=== PATIENT | female | born 1995 | race Two or more races ===

== ENCOUNTER 2017-10-20 11:44 | Emergency (ER) | payer OTHER ==
[2017-10-20 11:54] VITALS: BP 140/69; PULSE 98; TEMP 98.2; BMI 31.8
--- NOTE | 2017-10-20 12:30 | PDOC ---
History of Present Illness - General Chief Complaint: Respiratory Stated Complaint: NASAL PAIN Time Seen by Provider: 10/20/17 11:54 History Source: Patient Exam Limitations: No Limitations - History of Present Illness Initial Comments: 10/20/17 12:23 22 yr female with c/o cough sore throat nasal congestion for 2 days no fever. Pt states 10 weeks . no abd pain or urinary complaints. 10/20/17 12:24 Severity: reports: mild Past History - Past Medical History Allergies/Adverse Reactions: Allergies Allergy/AdvReac Type Severity Reaction Status Date / Time No Known Allergies Allergy Verified 10/20/17 11:51 Home Medications: Ambulatory Orders Penicillin V Potassium [Pen Vee K -] 250 mg PO QID #28 tablet 10/20/17 COPD: No - Suicide/Smoking/Psychosocial Hx Smoking History: Never smoked *Physical Exam - Vital Signs Last Vital Signs Temp Pulse Resp BP Pulse Ox 98.2 F 98 H 18 140/69 100 10/20/17 11:47 10/20/17 11:47 10/20/17 11:47 10/20/17 11:47 10/20/17 11:47 - Physical Exam General Appearance: Yes: Nourished, Appropriately Dressed HEENT: positive: EOMI, FANNY, Pharyngeal Erythema, Tonsillar Erythema Neck: positive: Supple. negative: Tender Respiratory/Chest: positive: Lungs Clear, Normal Breath Sounds. negative: Chest Tender Cardiovascular: positive: Regular Rhythm, Regular Rate Integumentary: positive: Normal Color, Dry, Warm Neurologic: positive: Fully Oriented, Alert, Normal Mood/Affect, Normal Response , Motor Strength 5/5 Medical Decision Making - Medical Decision Making 10/20/17 12:30 cc: cough sore throat nasal congestion neg fever neg abd pain 10 weeks taking vitamins *DC/Admit/Observation/Transfer Diagnosis at time of Disposition: Nasal congestion, Strep pharyngitis - Discharge Dispostion Disposition: HOME Condition at time of disposition: Good - Prescriptions Prescriptions: Penicillin V Potassium [Pen Vee K -] 250 mg PO QID #28 tablet - Referrals - Patient Instructions Printed Discharge Instructions: DI for Viral Upper Respiratory Infection -- Adult Additional Instructions: drink pleanty of fluids take the penicillin as directed use saline nasal irrigation spray sold over the counter to help clean sinuses and help with congestion take tylenol 650mg every 4-6hrs as needed for any fever or body aches drink decaf tea with honey and lemon steam from the shower can help clear sinuses as well follow with your doctor for any worsening symptoms return to ER if any fever greater than 101 short of breath sever pain or any other concerns beber lizbet cantidad de fluidos use un aerosol de irrigacin nasal con solucin salina que se vende sin receta mdica para ayudar a limpiar los senos nasales y ayudar con la congestin tome tylenol 650mg cada 4-6 horas segn sea necesario para cualquier fiebre o dolor de cuerpo ida t descafeinado con miel y limn el vapor de la ducha puede ayudar a limpiar los senos paranasales tambin siga con saxena mdico para cualquier sntoma que empeore regresar a la lauren de emergencias si la fiebre superior a 101 falta de aliento corta dolor o cualquier otra preocupacin - Post Discharge Activity
== END 2017-10-20 12:56 | disposition home or self-care (01) ==
LOC: JERFT 11:44
DX: O26.891 Other specified pregnancy related conditions, first trimester (principal); O98.811 Other maternal infectious and parasitic diseases complicating pregnancy, first trimester; J02.0 Streptococcal pharyngitis; B95.0 Streptococcus, group A, as the cause of diseases classified elsewhere; Z3A.10 10 weeks gestation of pregnancy
CPT/HCPCS: 87070; 87077; 87430; 99281-25

== ENCOUNTER 2018-05-13 04:00 | Inpatient (IN) | payer OTHER ==
[2018-05-13] MEDS ORDERED: DEXTROSE 5%-LACTATED RINGERS 1,000 ML IV SCH ×3 (04:30→07:30)
[2018-05-13] MEDS ORDERED: AMPICILLIN - 2 GM in SODIUM CHLORIDE 100 ML IVPB ONE (05:25)
[2018-05-13] MEDS ORDERED: BUTORPHANOL TARTRATE 1 MG/ML VIAL IVPB ONE (05:25)
[2018-05-13] MEDS ORDERED: PROMETHAZINE HCL 25 MG/1 ML VIAL IVPB ONE (05:25)
[2018-05-13] MEDS ORDERED: AMPICILLIN SODIUM 2 GM VIAL ONE (05:26)
[2018-05-13] MEDS ORDERED: PROMETHAZINE HCL 25 MG/1 ML VIAL ONE (05:49)
[2018-05-13] MEDS ORDERED: BUTORPHANOL TARTRATE 1 MG/ML VIAL ONE ×2 (05:49)
[2018-05-13 06:03] LABS: BASO % 0.1 % (0-2.0); EOS % 0.3 % (0-4.5); HEMATOCRIT 36.3 % (32.4-45.2); HEMOGLOBIN 12.4 GM/dL (10.7-15.3); LYMPH % 10.1 % (8-40); MCH 28.4 pg (25.7-33.7); MCHC 34.2 g/dl (32.0-36.0); MEAN PLT VOLUME 8.9 fl (7.5-11.1); MONO % 6.9 % (3.8-10.2); NEUT % 82.6 % (42.8-82.8); PLATELET COUNT 194 K/MM3 (134-434); RBC 4.37 M/mm3 (3.60-5.2); RDW 14.5 % (11.6-15.6); WHITE BLOOD COUNT 10.9 K/mm3 (4.0-10.0)
[2018-05-13 06:14] VITALS: BMI 38.6
[2018-05-13 06:16] LABS: INR 0.96 (0.83-1.09); PROTHROMBIN TIME (PATIENT) 11.3 SEC (9.7-13.0)
[2018-05-13 06:18] LABS: ACTIVATED PTT 25.9 SECONDS (25.2-36.5)
[2018-05-13 06:41] LABS: ANION GAP 8 MMOL/L (8-16); BLOOD UREA NITROGEN 8 mg/dL (7-18); CALCIUM 8.1 mg/dL (8.5-10.1); CHLORIDE 104 mmol/L (98-107); CO2 21 mmol/L (21-32); CREATININE 0.6 mg/dL (0.55-1.3); GLUCOSE,RANDOM 187 mg/dL (74-106); POTASSIUM 4.1 mmol/L (3.5-5.1); SODIUM 134 mmol/L (136-145)
--- NOTE | 2018-05-13 07:32 | HP ---
Past Medical History - Admission Chief Complaint: Labor pain History of Present Illness: 22 yo , @ 39 weeks gestation, EDC 05/14/18, admitted for labor pain. Upon admission she was 6cm dilated. History Source: Patient Limitations to Obtaining History: No Limitations - Past Medical History ...: 2 ...Para: 0 ...Term: 0 ...: 0 ...Spon : 1 ...Induced : 0 ...Multiple Gestation: 0 ...LMP: 08/07/17 ... Weeks Gestation by Dates: 39.6 ...EDC by Dates: 05/14/18 - Past Surgical History Past Surgical History: Yes: None Hx Myomectomy: No Hx Transabdominal Cerclage: No - Smoking History Smoking history: Never smoked Have you smoked in the past 12 months: No - Alcohol/Substance Use Hx Alcohol Use: No - Social History Usual Living Arrangement: Yes: With Significant Other Home Medications - Allergies Allergies/Adverse Reactions: Allergies Allergy/AdvReac Type Severity Reaction Status Date / Time No Known Allergies Allergy Verified 05/13/18 04:19 - Home Medications Home Medications: Ambulatory Orders NK [No Known Home Medication] 05/13/18 Family Disease History - Family Disease History Family History: Unremarkable Review of Systems - Review of Systems Constitutional: reports: No Symptoms Eyes: reports: No Symptoms HENT: reports: No Symptoms Neck: reports: No Symptoms Cardiovascular: reports: No Symptoms Respiratory: reports: No Symptoms Gastrointestinal: reports: No Symptoms Genitourinary: reports: Pain Breasts: reports: No Symptoms Reported Musculoskeletal: reports: No Symptoms Integumentary: reports: No Symptoms Neurological: reports: No Symptoms Endocrine: reports: No Symptoms Hematology/Lymphatic: reports: No Symptoms Psychiatric: reports: No Symptoms Pain Intensity: 8 Physical Exam - Maternity Vital Signs: Vital Signs Temperature 97.6 F 05/13/18 04:19 Pulse Rate 96 H 05/13/18 07:00 Respiratory Rate 20 05/13/18 07:00 Blood Pressure 134/79 05/13/18 07:00 O2 Sat by Pulse Oximetry (%) Constitutional: Yes: Well Nourished Eyes: Yes: Conjunctiva Clear HENT: Yes: Atraumatic Neck: Yes: Supple Cardiovascular: Yes: Regular Rate and Rhythm Lungs: Clear to auscultation - Abdominal Exam/OB Number of Fetuses: Single Presentation: Vertex - Vaginal Exam/OB Vaginal Bleediing: Light Dilatation (cm): 6 Effacement (%): 90 Amniotic Membrane Status: Intact Station: -2 - Physical Exam ...Motor Strength: WNL Psychiatric: Yes: Alert, Oriented - Labs Lab Results: CBC, BMP 05/13/18 05:40 05/13/18 05:40 Problem List - Problems (1) 39 weeks gestation of Code(s): Z3A.39 - 39 WEEKS GESTATION OF (2) Pain during labor Code(s): O99.89 - OTH DISEASES AND CONDITIONS COMPL PREG/CHLDBRTH; R52 - PAIN, UNSPECIFIED Assessment/Plan Active labor Analgesia as needed Anticipate
[2018-05-13] MEDS ORDERED: OXYTOCIN 20 UNITS in 0.9% NS 20 UNIT/1,000 ML INFUS.BAG IV ONE ×2 (08:20→09:27)
[2018-05-13] MEDS ORDERED: LIDOCAINE HCL 1% PRESERVATIVE FREE - 30ML VIAL ONE (08:20)
[2018-05-13] MEDS ORDERED: AMPICILLIN SODIUM 1 GM VIAL ONE (08:57)
[2018-05-13] MEDS: AMPICILLIN - 1 GM in SODIUM CHLORIDE 100 ML IVPB SCH ×3 (08:58→17:19)
[2018-05-13] MEDS ORDERED: TUBERCULIN PPD 5 TU/0.1ML SYRINGE (IN PATIENT USE ONLY) ID ONE (09:00)
--- NOTE | 2018-05-13 09:13 | PN ---
Progress Note (short form) - Note Progress Note: cx 9 cm, 100 vx 0 mi, arom, clear , fhr cat 1
[2018-05-13] MEDS ORDERED: WITCH HAZEL 50% (TUCKS) 40 PAD/JAR PAD TP PRN (10:23)
[2018-05-13] MEDS ORDERED: BENZOCAINE 20% 57 GM BOTTLE TP PRN (10:23)
[2018-05-13] MEDS ORDERED: BISACODYL 10 MG SUPP.RECT RC PRN (10:23)
[2018-05-13] MEDS ORDERED: BENZOCAINE 28 GM HEMORRHOIDAL OINTMENT TP PRN (10:23)
[2018-05-13] MEDS ORDERED: METHYLERGONOVINE MALEATE 0.2 MG/1 ML AMP IM PRN (10:23)
[2018-05-13] MEDS ORDERED: D5W-LR W/ 20 UNITS OXYTOCIN 20 UNIT/1,000 ML INFUS.BAG IV SCH (10:30)
[2018-05-13] MEDS ORDERED: OXYTOCIN 20 UNITS in 0.9% NS 20 UNIT/1,000 ML INFUS.BAG IV SCH (10:30)
[2018-05-13] MEDS: ACETAMINOPHEN 325 MG TABLET (FP) PO PRN ×2 (13:14→19:22)
[2018-05-13] MEDS: IBUPROFEN 600 MG TABLET (FP) PO PRN ×2 (13:14→19:22)
[2018-05-13] MEDS: FERROUS SO4 325 MG TABLET (FP) PO SCH (22:11)
[2018-05-14 07:40] LABS: BASO % 0.2 % (0-2.0); EOS % 0.4 % (0-4.5); HEMATOCRIT 32.9 % (32.4-45.2); LYMPH % 15.2 % (8-40); MCH 27.8 pg (25.7-33.7); MCHC 33.4 g/dl (32.0-36.0); MEAN CELL VOLUME 83.4 fl (80-96); MEAN PLT VOLUME 8.8 fl (7.5-11.1); MONO % 8.4 % (3.8-10.2); NEUT % 75.8 % (42.8-82.8); PLATELET COUNT 206 K/MM3 (134-434); RBC 3.95 M/mm3 (3.60-5.2); RDW 15.1 % (11.6-15.6); WHITE BLOOD COUNT 13.5 K/mm3 (4.0-10.0)
[2018-05-14] MEDS: IBUPROFEN 600 MG TABLET (FP) PO PRN ×3 (07:45→22:07)
[2018-05-14] MEDS: ACETAMINOPHEN 325 MG TABLET (FP) PO PRN (07:46)
[2018-05-14] MEDS: FERROUS SO4 325 MG TABLET (FP) PO SCH ×2 (09:54→22:07)
[2018-05-14] MEDS: PRENATAL VITAMINS W/ FOLIC ACID TABLET (FP) PO SCH (09:54)
--- NOTE | 2018-05-14 10:12 | PN ---
Post Progress Note - Subjective Subjective: no complains Post Day: 1 Type of Delivery: Vital Signs: Vital Signs Temperature 97.8 F 05/14/18 06:00 Pulse Rate 91 H 05/14/18 06:00 Respiratory Rate 18 05/14/18 06:00 Blood Pressure 112/53 L 05/14/18 06:00 O2 Sat by Pulse Oximetry (%) Breast Exam: Yes: Soft. No: Engorged Uterus: Yes: Fundus Firm, Fundus below umbilicus, Non-tender Lochia: Yes: Rubra Lochia, amount: Moderate Extremities: Yes: Calves non-tender Perineum: Yes: Episiotomy (suture healing ) Activity: Ambulating - Labs Labs: CBC WBC 13.5 K/mm3 (4.0-10.0) H 05/14/18 06:10 RBC 3.95 M/mm3 (3.60-5.2) 05/14/18 06:10 Hgb 11.0 GM/dL (10.7-15.3) 05/14/18 06:10 Hct 32.9 % (32.4-45.2) 05/14/18 06:10 MCV 83.4 fl (80-96) 05/14/18 06:10 MCH 27.8 pg (25.7-33.7) 05/14/18 06:10 MCHC 33.4 g/dl (32.0-36.0) 05/14/18 06:10 RDW 15.1 % (11.6-15.6) 05/14/18 06:10 Plt Count 206 K/MM3 (134-434) 05/14/18 06:10 MPV 8.8 fl (7.5-11.1) 05/14/18 06:10 Absolute Neuts (auto) 10.2 K/mm3 (1.5-8.0) H 05/14/18 06:10 Neutrophils % 75.8 % (42.8-82.8) 05/14/18 06:10 Lymphocytes % 15.2 % (8-40) D 05/14/18 06:10 Monocytes % 8.4 % (3.8-10.2) 05/14/18 06:10 Eosinophils % 0.4 % (0-4.5) 05/14/18 06:10 Basophils % 0.2 % (0-2.0) 05/14/18 06:10 Nucleated RBC % 0 % (0-0) 05/14/18 06:10 Problem List - Problems (1) Vaginal delivery Code(s): O80 - ENCOUNTER FOR FULL-TERM UNCOMPLICATED DELIVERY (2) Encounter for assessment Code(s): Z39.2 - ENCOUNTER FOR ROUTINE FOLLOW-UP Assessment/Plan stable plan discharge tomorrow.
[2018-05-14] MEDS ORDERED: DIPHTH,PERTUSS(ACELL),TET 0.5 ML DISP.SYRIN IM ONE (14:00)
[2018-05-14] MEDS ORDERED: SENNOSIDES/DOCUSATE COMBO (SENNA PLUS) TABLET (UD) PO PRN (22:00)
[2018-05-15] MEDS: IBUPROFEN 600 MG TABLET (FP) PO PRN (07:07)
[2018-05-15] MEDS: ACETAMINOPHEN 325 MG TABLET (FP) PO PRN (07:09)
--- NOTE | 2018-05-15 07:40 | PN ---
Post Progress Note Type of Delivery: Vital Signs: Vital Signs Temperature 98.2 F 05/14/18 21:27 Pulse Rate 78 05/14/18 21:27 Respiratory Rate 20 05/14/18 21:27 Blood Pressure 106/69 05/14/18 21:27 O2 Sat by Pulse Oximetry (%) Breast Exam: Yes: Soft Uterus: Yes: Fundus Firm Abdomen/GI: Yes: Abdomen soft, Other Lochia, amount: Small Extremities: Yes: Calves non-tender Activity: Ambulating - Labs Labs: CBC WBC 13.5 K/mm3 (4.0-10.0) H 05/14/18 06:10 RBC 3.95 M/mm3 (3.60-5.2) 05/14/18 06:10 Hgb 11.0 GM/dL (10.7-15.3) 05/14/18 06:10 Hct 32.9 % (32.4-45.2) 05/14/18 06:10 MCV 83.4 fl (80-96) 05/14/18 06:10 MCH 27.8 pg (25.7-33.7) 05/14/18 06:10 MCHC 33.4 g/dl (32.0-36.0) 05/14/18 06:10 RDW 15.1 % (11.6-15.6) 05/14/18 06:10 Plt Count 206 K/MM3 (134-434) 05/14/18 06:10 MPV 8.8 fl (7.5-11.1) 05/14/18 06:10 Absolute Neuts (auto) 10.2 K/mm3 (1.5-8.0) H 05/14/18 06:10 Neutrophils % 75.8 % (42.8-82.8) 05/14/18 06:10 Lymphocytes % 15.2 % (8-40) D 05/14/18 06:10 Monocytes % 8.4 % (3.8-10.2) 05/14/18 06:10 Eosinophils % 0.4 % (0-4.5) 05/14/18 06:10 Basophils % 0.2 % (0-2.0) 05/14/18 06:10 Nucleated RBC % 0 % (0-0) 05/14/18 06:10 Assessment/Plan 22yo s/p , PPD#2 Routine PP care Labs reviewed D/C to home Candelaria Duggan MD
[2018-05-15] MEDS: PRENATAL VITAMINS W/ FOLIC ACID TABLET (FP) PO SCH (09:57)
[2018-05-15] MEDS: FERROUS SO4 325 MG TABLET (FP) PO SCH (09:57)
[2018-05-15 11:48] VITALS: BP 122/64; PULSE 83; TEMP 98.1
--- NOTE | 2018-05-18 11:28 | DS ---
Physical Exam-SHIFT STACKER Vital Signs: Vital Signs Temperature 98.1 F 05/15/18 10:00 Pulse Rate 83 05/15/18 10:00 Respiratory Rate 20 05/15/18 10:00 Blood Pressure 122/64 05/15/18 10:00 O2 Sat by Pulse Oximetry (%) Constitutional: Yes: Well Nourished, No Distress, Calm Eyes: Yes: WNL, Conjunctiva Clear, EOM Intact HENT: Yes: WNL, Atraumatic, Normocephalic Neck: Yes: WNL, Supple, Trachea Midline Cardiovascular: Yes: WNL, Regular Rate and Rhythm Respiratory: Yes: WNL, Regular, CTA Bilaterally Gastrointestinal: Yes: WNL ...Rectal Exam: Yes: WNL Renal/: Yes: WNL ....Post : Yes: Uterus firm, Uterus non-tender, Slight lochia rubra Breast(s): Yes: WNL Musculoskeletal: Yes: WNL Extremities: Yes: WNL Integumentary: Yes: WNL Neurological: Yes: WNL, Alert, Oriented ...Motor Strength: WNL Psychiatric: Yes: WNL, Alert, Oriented Labs: CBC, BMP 05/14/18 06:10 05/13/18 05:40 Delivery - Delivery Vaginal Delivery: Spontaneous (no complication) Type of Anesthesia: Local Episiotomy/Laceration: Perineal Extension/lac, 1st degree EBL (cc): 300 Delivery, Single - Stages of Labor Date 1st Stage Initiatied: 05/13/18 Time 1st Stage Initiated: 01:00 Date 2nd Stage Initiated: 05/13/18 Time 2nd Stage Initiated: 09:45 Date of Delivery: 05/13/18 Time of Delivery: 10:06 Time Placenta Delivered: 10:08 Placenta: Yes: Spontaneous - Condition of Paper Bag Inspector/Louver Door Assembler Present: No Gender: Male Weight: 7 lb Position: Left, OA Total Hours ROM (Hrs/Mins): 1H2M - 1 Minute Total Score: 9 5 Minutes Total Score: 9 - Roggen Feeding Plan Initial Plan: Elected not to breastfeed exclusively throughout hospitalization Discharge Summary Reason For Visit: LABOR ADMIT Procedures: Principal: Hospital Course: no complication Condition: Stable - Instructions Diet, Activity, Other Instructions: Regular Diet Referrals: Skyler Hurley MD [Staff Physician] - Disposition: HOME - Home Medications Comprehensive Discharge Medication List: Ambulatory Orders Ibuprofen 600 mg PO Q6H PRN #30 tablet 05/15/18
== END 2018-05-15 12:40 | disposition home or self-care (01) | DRG 560 ==
LOC: JDEL 04:00 → JLDR 05:25 → J3W 12:05
PROVIDERS: ADMIT Obstetrics & Gynecology; ATTEND Obstetrics & Gynecology
PROC: 10E0XZZ Delivery of Products of Conception, External Approach (ICD-10-PCS; principal; 2018-05-13)
PROC: 0W8NXZZ Division of Female Perineum, External Approach (ICD-10-PCS; 2018-05-13)
DX: O80 Encounter for full-term uncomplicated delivery (principal); Z3A.39 39 weeks gestation of pregnancy; Z37.0 Single live birth
CPT/HCPCS: 36415; 59025; 59409; 80048; 85025; 85610; 85730; 86593; 86850; 86900; 86901; 90715

== ENCOUNTER 2020-10-30 09:09 | Emergency (ER) | payer OTHER ==
[2020-10-30 09:24] VITALS: BP 112/69; PULSE 92; TEMP 97; BMI 32.8
== END 2020-10-30 14:00 | disposition short-term general hospital (02) ==
LOC: JER 09:09
DX: J06.9 Acute upper respiratory infection, unspecified (principal)
CPT/HCPCS: 99283-25; C9803; U0003; U0005

== ENCOUNTER 2020-12-15 08:05 | Inpatient (IN) | payer OTHER ==
[2020-12-15] MEDS ORDERED: BUTORPHANOL TARTRATE 1 MG/ML VIAL IVPUSH PRN (08:28)
[2020-12-15] MEDS ORDERED: PROMETHAZINE HCL 25 MG/1 ML VIAL IVPB ONE (08:28)
[2020-12-15] MEDS ORDERED: DEXTROSE 5%-LACTATED RINGERS 1,000 ML IV SCH (08:30)
[2020-12-15] MEDS ORDERED: DINOPROSTONE 10 MG VAGINAL SUPPOSITORY VG ONE (09:00)
[2020-12-15 09:27] VITALS: BMI 33.6
[2020-12-15 09:27] LABS: BASO % 0.3 % (0-2.0); EOS % 0.7 % (0-4.5); HEMATOCRIT 38.5 % (32.4-45.2); HEMOGLOBIN 13.4 GM/dL (10.7-15.3); LYMPH % 11.3 % (8-40); MCH 31.5 pg (25.7-33.7); MCHC 34.7 g/dl (32.0-36.0); MEAN CELL VOLUME 90.9 fl (80-96); MEAN PLT VOLUME 8.3 fl (7.5-11.1); MONO % 8.9 % (3.8-10.2); NEUT % 78.8 % (42.8-82.8); PLATELET COUNT 196 10^3/uL (134-434); RBC 4.24 M/mm3 (3.60-5.2); RDW 12.5 % (11.6-15.6); WHITE BLOOD COUNT 9.6 K/mm3 (4.0-10.0)
[2020-12-15 09:34] LABS: INR 0.94 (0.83-1.09); PROTHROMBIN TIME (PATIENT) 11.5 SEC (9.7-13.0)
[2020-12-15 09:36] LABS: ACTIVATED PTT 26.1 SECONDS (25.2-36.5)
[2020-12-15 09:43] LABS: CALCIUM 9.1 mg/dL (8.5-10.1)
[2020-12-15 09:44] LABS: BLOOD UREA NITROGEN 8.5 mg/dL (7-18)
[2020-12-15 09:47] LABS: CREATININE 0.6 mg/dL (0.55-1.3)
[2020-12-15] MEDS ORDERED: AMPICILLIN - 2 GM in SODIUM CHLORIDE 100 ML IVPB ONE (16:14)
[2020-12-15] MEDS ORDERED: PROMETHAZINE HCL 25 MG/1 ML VIAL ONE (16:22)
[2020-12-15] MEDS ORDERED: BUTORPHANOL TARTRATE 2 MG/ML VIAL ONE (16:22)
[2020-12-15] MEDS ORDERED: SODIUM CHLORIDE 100 ML IVPB ONE (16:40)
[2020-12-15] MEDS ORDERED: AMPICILLIN SODIUM 2 GM VIAL ONE (16:40)
[2020-12-15] MEDS ORDERED: OXYTOCIN 20 UNITS in 0.9% NS 20 UNIT/1,000 ML INFUS.BAG IV ONE (17:00)
[2020-12-15] MEDS ORDERED: ACETAMINOPHEN 325 MG TABLET (FP) PO PRN (17:30)
[2020-12-15] MEDS ORDERED: BENZOCAINE 28 GM HEMORRHOIDAL OINTMENT TP PRN (17:30)
[2020-12-15] MEDS ORDERED: BISACODYL 10 MG SUPP.RECT RC PRN (17:30)
[2020-12-15] MEDS ORDERED: BENZOCAINE 20% 57 GM BOTTLE TP PRN (17:30)
[2020-12-15] MEDS ORDERED: WITCH HAZEL 50% (TUCKS) 40 PAD/JAR PAD TP PRN (17:30)
[2020-12-15] MEDS ORDERED: METHYLERGONOVINE MALEATE 0.2 MG/1 ML AMP IM PRN (17:30)
[2020-12-15] MEDS ORDERED: D5W-LR W/ 20 UNITS OXYTOCIN 20 UNIT/1,000 ML INFUS.BAG IV SCH (17:30)
[2020-12-15 17:53] LABS: CORD BASE EXCESS -4.3 mmol/L (0-2); CORD PCO2 51.1 mmHg (30-78); CORD pH 7.272 (7.14-7.44)
[2020-12-15 17:56] LABS: CORD BASE EXCESS -2.4 mmol/L (0-2); CORD PCO2 47.1 mmHg (30-78); CORD pH 7.325 (7.14-7.44)
[2020-12-15] MEDS ORDERED: AMPICILLIN - 1 GM in SODIUM CHLORIDE 100 ML IVPB SCH (20:15)
[2020-12-15] MEDS: IBUPROFEN 600 MG TABLET (FP) PO PRN (21:32)
[2020-12-15] MEDS: FERROUS SO4 325 MG TABLET (FP) PO SCH (23:06)
[2020-12-16] MEDS: IBUPROFEN 600 MG TABLET (FP) PO PRN ×4 (04:14→22:49)
[2020-12-16 06:15] LABS: BASO % 0.2 % (0-2.0); EOS % 0.8 % (0-4.5); HEMATOCRIT 37.3 % (32.4-45.2); HEMOGLOBIN 12.8 GM/dL (10.7-15.3); LYMPH % 11.6 % (8-40); MCH 31.5 pg (25.7-33.7); MCHC 34.3 g/dl (32.0-36.0); MEAN CELL VOLUME 91.7 fl (80-96); MEAN PLT VOLUME 8.5 fl (7.5-11.1); MONO % 10.3 % (3.8-10.2); NEUT % 77.1 % (42.8-82.8); PLATELET COUNT 191 10^3/uL (134-434); RBC 4.06 M/mm3 (3.60-5.2); RDW 12.5 % (11.6-15.6); WHITE BLOOD COUNT 14.2 K/mm3 (4.0-10.0)
[2020-12-16] MEDS: FERROUS SO4 325 MG TABLET (FP) PO SCH ×2 (08:27→17:35)
[2020-12-16] MEDS: PRENATAL VITAMINS W/ FOLIC ACID TABLET (FP) PO SCH (09:28)
[2020-12-16] MEDS ORDERED: SENNOSIDES/DOCUSATE COMBO (SENNA PLUS) TABLET (UD) PO PRN (22:00)
[2020-12-17] MEDS: IBUPROFEN 600 MG TABLET (FP) PO PRN (09:04)
[2020-12-17] MEDS: FERROUS SO4 325 MG TABLET (FP) PO SCH (09:05)
[2020-12-17] MEDS: PRENATAL VITAMINS W/ FOLIC ACID TABLET (FP) PO SCH (09:05)
[2020-12-17 09:28] VITALS: BP 114/65; PULSE 76; TEMP 97.8
== END 2020-12-17 13:00 | disposition home or self-care (01) | DRG 560 ==
LOC: JLDR 08:05 → J3W 20:23
PROVIDERS: ADMIT Obstetrics & Gynecology; ATTEND Obstetrics & Gynecology
PROC: 10E0XZZ Delivery of Products of Conception, External Approach (ICD-10-PCS; principal; 2020-12-15)
PROC: 3E0P7VZ Introduction of Hormone into Female Reproductive, Via Natural or Artificial Opening (ICD-10-PCS; 2020-12-15)
DX: O41.03X0 Oligohydramnios, third trimester, not applicable or unspecified (principal); O99.824 Streptococcus B carrier state complicating childbirth; Z3A.37 37 weeks gestation of pregnancy; Z37.0 Single live birth
CPT/HCPCS: 36415; 36600; 59409; 80048; 82803; 85025; 85610; 85730; 86780; 86850; 86900; 86901; C9803; U0003; U0005

== ENCOUNTER 2020-12-27 08:59 | Emergency (ER) | payer OTHER ==
[2020-12-27 09:20] VITALS: TEMP 99.5; BMI 32.4
[2020-12-27] MEDS ORDERED: SODIUM CHLORIDE IV ONE (09:51)
[2020-12-27] MEDS ORDERED: VANCOMYCIN 1 GM in D5W (PRE-DOCKED) 1,000 MG/250 ML IVPB ONE (09:52)
[2020-12-27 10:34] LABS: HEMATOCRIT 43.7 % (32.4-45.2); MCH 31.2 pg (25.7-33.7); MCHC 34.4 g/dl (32.0-36.0); MEAN CELL VOLUME 90.6 fl (80-96); MEAN PLT VOLUME 8.5 fl (7.5-11.1); PLATELET COUNT 219 10^3/uL (134-434); RBC 4.82 M/mm3 (3.60-5.2); RDW 12.5 % (11.6-15.6); WHITE BLOOD COUNT 13.6 K/mm3 (4.0-10.0)
[2020-12-27] MEDS ORDERED: VANCOMYCIN 1 GRAM (PRE-DOCKED) 1,000 MG/250 ML BAG IVPB ONE (10:39)
[2020-12-27 10:42] LABS: INR 1.02 (0.83-1.09); PROTHROMBIN TIME (PATIENT) 12.6 SEC (9.7-13.0)
[2020-12-27 10:45] LABS: ACTIVATED PTT 22.6 SECONDS (25.2-36.5)
[2020-12-27 11:02] LABS: CHLORIDE 106 mmol/L (98-107); SODIUM 139 mmol/L (136-145)
[2020-12-27 11:07] LABS: ALBUMIN 3.5 g/dl (3.4-5.0); ANION GAP 8 MMOL/L (8-16); BLOOD UREA NITROGEN 18.4 mg/dL (7-18); CO2 25 mmol/L (21-32); GLUCOSE,RANDOM 83 mg/dL (74-106)
[2020-12-27 11:10] LABS: CREATININE 0.9 mg/dL (0.55-1.3); SGOT/AST 15 U/L (15-37); SGPT/ALT 34 U/L (13-61)
[2020-12-27 11:11] LABS: BILIRUBIN,TOTAL 0.8 mg/dL (0.2-1)
[2020-12-27 11:12] LABS: TOT PROT 7.3 g/dl (6.4-8.2)
[2020-12-27 11:13] LABS: ALK PHOS 87 U/L (45-117)
[2020-12-27] MEDS ORDERED: FAMOTIDINE 20 MG/50 ML IVPB 20 MG/50 ML MG IVPB ONE ×2 (11:17→12:02)
[2020-12-27 12:02] LABS: ANISOCYTOSIS 0; HELMET CELLS 0; HOWELL-JOLLY BODIES 0; MACROCYTOSIS 0; OVALOCYTE 0; PLATELET ESTIMATE NORMAL; ROULEAU 0; SICKELED CELLS 0; TARGET CELLS 0; TEAR DROP CELLS 0; TOXIC GRANULATION 0
[2020-12-27 12:31] LABS: EPI CELLS 17 /uL (0-25.1); HYALINE CASTS 2 /uL (0-3.1); URINE APPEARANCE CLEAR; URINE BACTERIA 68 /uL (0-1359); URINE BILIRUBIN NEGATIVE (NEGATIVE); URINE COLOR YELLOW; URINE GLUCOSE (UA) NEGATIVE (NEGATIVE); URINE KETONE NEGATIVE (NEGATIVE); URINE LEUK ESTERASE 1+ (NEGATIVE); URINE NITRITE NEGATIVE (NEGATIVE); URINE PROTEIN 1+ (NEGATIVE); URINE RBC 406 /uL (0-23.9); URINE UROBILINOGEN 0.2 mg/dL (0.2-1.0); URINE WBC 84 /uL (0-25.8)
[2020-12-27] MEDS ORDERED: ACETAMINOPHEN 1000 MG/100 ML VIAL (NON FORMULARY) IVPB ONE (15:01)
[2020-12-27] MEDS ORDERED: ACETAMINOPHEN 500 MG TABLET (FP) PO ONE (15:07)
[2020-12-27] MEDS ORDERED: ACETAMINOPHEN 325 MG TABLET (FP) ONE (15:10)
[2020-12-27 15:18] VITALS: BP 115/62; PULSE 75
== END 2020-12-27 15:25 | disposition home or self-care (01) ==
LOC: JER 08:59
PROC: 3E033NZ Introduction of Analgesics, Hypnotics, Sedatives into Peripheral Vein, Percutaneous Approach (ICD-10-PCS; principal; 2020-12-27)
PROC: 3E033GC Introduction of Other Therapeutic Substance into Peripheral Vein, Percutaneous Approach (ICD-10-PCS; 2020-12-27)
PROC: 3E033GC Introduction of Other Therapeutic Substance into Peripheral Vein, Percutaneous Approach (ICD-10-PCS; 2020-12-27)
DX: N61.23 Granulomatous mastitis, bilateral breast (principal)
CPT/HCPCS: 36415; 71045-TC-FY; 76641-TC-50; 80053; 81003; 83605; 84484; 85025; 85610; 85730; 87040; 87086; 93005; 93010; 96365; 96375; 99284-25

== ENCOUNTER 2021-01-04 12:20 | Emergency (ER) | payer OTHER ==
[2021-01-04 12:31] VITALS: TEMP 98.9; BMI 32.4
[2021-01-04] MEDS ORDERED: SODIUM CHLORIDE 0.9% 500 ML INFUS.BAG IV ONE (13:23)
[2021-01-04 14:51] LABS: VENOUS BASE EXCESS -2.8 mmol/L (-2-2); VENOUS O2 SATURATION 53.9 % (70-80); VENOUS PCO2 45.3 mmHg (38-52); VENOUS PH 7.33 (7.310-7.410)
[2021-01-04 14:53] LABS: HEMATOCRIT 40.8 % (32.4-45.2); HEMOGLOBIN 14.1 GM/dL (10.7-15.3); MCHC 34.6 g/dl (32.0-36.0); MEAN CELL VOLUME 89.4 fl (80-96); MEAN PLT VOLUME 7.8 fl (7.5-11.1); PLATELET COUNT 359 10^3/uL (134-434); RBC 4.56 M/mm3 (3.60-5.2); WHITE BLOOD COUNT 7.6 K/mm3 (4.0-10.0)
[2021-01-04 15:16] LABS: ALBUMIN 3.3 g/dl (3.4-5.0); BLOOD UREA NITROGEN 12.2 mg/dL (7-18); CALCIUM 8.7 mg/dL (8.5-10.1)
[2021-01-04 15:19] LABS: CREATININE 0.9 mg/dL (0.55-1.3)
[2021-01-04 15:21] LABS: BILIRUBIN,TOTAL 0.5 mg/dL (0.2-1); TOT PROT 7.2 g/dl (6.4-8.2); URINE APPEARANCE CLEAR; URINE BILIRUBIN NEGATIVE (NEGATIVE); URINE COLOR YELLOW; URINE GLUCOSE (UA) NEGATIVE (NEGATIVE); URINE KETONE NEGATIVE (NEGATIVE); URINE LEUK ESTERASE NEGATIVE (NEGATIVE); URINE NITRITE NEGATIVE (NEGATIVE); URINE PROTEIN NEGATIVE (NEGATIVE); URINE UROBILINOGEN 0.2 mg/dL (0.2-1.0)
[2021-01-04 15:29] LABS: ANISOCYTOSIS 0; MACROCYTOSIS 0; PLATELET ESTIMATE NORMAL
[2021-01-04 17:41] VITALS: BP 130/70; PULSE 43
== END 2021-01-04 17:45 | disposition home or self-care (01) ==
LOC: JER 12:20
DX: K80.80 Other cholelithiasis without obstruction (principal); B96.89 Other specified bacterial agents as the cause of diseases classified elsewhere
CPT/HCPCS: 36415; 71046-TC-FY; 76705-TC; 80053; 81003; 82803; 83605; 85025; 87040; 87086; 93005; 93010; 99285-25; C9803; U0003; U0005

== ENCOUNTER 2023-06-07 19:33 | Emergency (ER) | payer OTHER ==
[2023-06-07 19:41] VITALS: BP 120/69; PULSE 62; RESP 18; TEMP 98; BMI 31.1
[2023-06-07] MEDS ORDERED: LIDOCAINE 4% PATCH TP ONE (19:41)
[2023-06-07] MEDS ORDERED: ACETAMINOPHEN 500 MG TABLET (FP) ONE (20:52)
[2023-06-07] MEDS ORDERED: KETOROLAC TROMETHAMINE 30 MG/1 ML VIAL ONE (20:52)
[2023-06-07] MEDS: ACETAMINOPHEN 500 MG TABLET (FP) PO ONE (20:56)
[2023-06-07] MEDS: KETOROLAC TROMETHAMINE 30 MG/1 ML VIAL IM ONE (20:56)
[2023-06-07 22:00] LABS: EPI CELLS 14 /uL (0-25.1); HYALINE CASTS 0 /uL (0-3.1); PH,URINE 5.5 (5.0-8.0); URINE APPEARANCE CLEAR; URINE BACTERIA 72 /uL (0-1359); URINE BILIRUBIN NEGATIVE (NEGATIVE); URINE COLOR YELLOW; URINE GLUCOSE (UA) NEGATIVE (NEGATIVE); URINE KETONE TRACE (NEGATIVE); URINE LEUK ESTERASE NEGATIVE (NEGATIVE); URINE NITRITE NEGATIVE (NEGATIVE); URINE PROTEIN NEGATIVE (NEGATIVE); URINE RBC 2265 /uL (0-23.9); URINE WBC 18 /uL (0-25.8)
[2023-06-07 22:03] LABS: HCG,QUALITATIVE URINE Negative
== END 2023-06-07 22:26 | disposition home or self-care (01) ==
LOC: JERFT 19:33
PROC: 3E0233Z Introduction of Anti-inflammatory into Muscle, Percutaneous Approach (ICD-10-PCS; principal; 2023-06-07)
DX: M54.6 Pain in thoracic spine (principal); G89.29 Other chronic pain; R11.2 Nausea with vomiting, unspecified; S29.012A Strain of muscle and tendon of back wall of thorax, initial encounter; X58.XXXA Exposure to other specified factors, initial encounter
CPT/HCPCS: 81003; 84703; 99284-25